=== PATIENT | male | born 1965 | race Caucasian/White ===

== ENCOUNTER 2018-09-11 10:20 | Day surgery (SDC) | payer OTHER ==
[2018-09-06 09:35] LABS: Urine Appearance CLEAR; Urine Bilirubin NEGATIVE (NEG); Urine Blood NEGATIVE (NEG); Urine Color YELLOW; Urine Glucose NEGATIVE (NEG); Urine Protein NEGATIVE (NEG); Urine Specific Gravity 1.015 (1.005-1.030); Urine Urobilinogen 0.2 mg/dL (0.2-1.0); Urine pH 5.5 (5.0-7.0)
[2018-09-06 09:36] LABS: Urine Microscopic Reflex NO UMIC
[2018-09-06 09:40] LABS: Absolute Lymphocytes (CBC) 3.7 K/uL (0.7-4.9); Absolute Monocytes 0.7 K/uL (0.1-1.3); Absolute Neutrophil 4.4 K/uL (1.8-8.0); Basophils % 0.5 % (0-1.3); Eosinophils % 2.9 % (0-4.4); Hematocrit 41.9 % (39.6-49.0); Lymphocytes % 40.5 % (15.3-44.8); MCH 30.5 pg (27.0-35.0); MCV 86.6 fL (80-100); MPV 8.2 fL (7.6-11.3); RBC Red Blood Cell Count 4.84 M/uL (4.33-5.43)
[2018-09-06 09:41] LABS: Protime INR 0.97
[2018-09-06 09:51] LABS: Phosphorus 3.9 mg/dL (2.5-4.9); Potassium 3.9 mmol/L (3.5-5.1); Uric Acid 5.2 mg/dL (3.5-7.2)
--- NOTE | 2018-09-06 10:35 | RAD REPORT ---
EXAM DESCRIPTION: RAD - Chest Pa And Lat (2 Views) - 09/06/2018 9:03 am CLINICAL HISTORY: Preop chest, pending kidney stone treatment COMPARISON: February 2013 TECHNIQUE: PA and lateral views of the chest were obtained. FINDINGS: The lungs are clear of failure, infiltrate or mass. Lung markings are similar to the vasiliy rison. Diaphragm is flattened. Posterior costophrenic angle blunting is believed to be chronic. This matches the 2013 exam. Heart size is normal and central vasculature is within normal limits. No pl eural effusion or pneumothorax seen. No acute bony finding noted. No aortic abnormality. IMPRESSION: No acute cardiopulmonary process. Above detailed findings not clearly different from 13.
--- NOTE | 2018-09-06 22:11 | EKG ---
Test Date: 2018-09-06 Test Time: 08:54:37 Extended Insurance Clerk: HO MEASUREMENT RESULTS: Intervals: Rate: 72 NE: 152 QRSD: 98 QT: 398 QTc: 435 [place]: P: 68 NE: 152 QRS: 49 T: 54 INTERPRETIVE STATEMENTS: Normal sinus rhythm Normal ECG Compared to ECG 09/11/2017 13:10:52 No significant changes Electronically Signed On 09-06-18 22:10:21 CDT by Cholo Wise
[2018-09-11] MEDS ORDERED: NA CHLORIDE 0.9% 1,000 ML ONE (10:50)
[2018-09-11] MEDS ORDERED: GENTAMICIN 100 MG/100 ML BAG 100 MG/100 ML BAG IV ONE (10:50)
[2018-09-11] MEDS ORDERED: MIDAZOLAM HCL 2 MG/2 ML INJ ONE (11:45)
[2018-09-11] MEDS ORDERED: FENTANYL CITR 100 MCG/2 ML ONE (11:45)
[2018-09-11] MEDS ORDERED: PROPOFOL 200 MG/20 ML VIAL IV ONE (11:45)
[2018-09-11] MEDS ORDERED: ONDANSETRON 4 MG/2 ML VIAL ONE (11:46)
[2018-09-11] MEDS ORDERED: LIDOCAINE 1% MPF 2 ML AMPULE ONE (11:47)
--- NOTE | 2018-09-11 11:59 | RAD REPORT ---
EXAM DESCRIPTION: RAD - Abdomen 1 View (KUB) - 09/11/2018 11:54 am CLINICAL HISTORY: pre op Pain COMPARISON: Abdomen 1 View (KUB) dated 08/24/2018; Abdomen 1 View (KUB) dated 10/16/2017; Abdomen 1 View (KUB) dated 10/03/2017; Abdomen 1 View (KUB) dated 09/27/2017 FINDINGS: The bowel gas pattern is non-obstructive. No evidence of free air or pneumatosis. Small ca lcification seen inferior right kidney. No significant bony findings. IMPRESSION: Small inferior right renal calculus.
== END 2018-09-11 13:50 | disposition home or self-care (01) ==
LOC: OR 10:20
PROVIDERS: ATTEND Urology
PROC: 0TF3XZZ Fragmentation in Right Kidney Pelvis, External Approach (ICD-10-PCS; principal; 2018-09-11 11:30)
DX: N20.0 Calculus of kidney (principal); I10 Essential (primary) hypertension; E11.9 Type 2 diabetes mellitus without complications; J44.9 Chronic obstructive pulmonary disease, unspecified; J45.909 Unspecified asthma, uncomplicated; E78.00 Pure hypercholesterolemia, unspecified; E78.5 Hyperlipidemia, unspecified; G47.33 Obstructive sleep apnea (adult) (pediatric); F17.200 Nicotine dependence, unspecified, uncomplicated; Z88.6 Allergy status to analgesic agent; Z82.49 Family history of ischemic heart disease and other diseases of the circulatory system
CPT/HCPCS: 36415; 50590; 71046; 74018; 80048; 81003; 82962; 84100; 84550; 85025; 85610; 85730; 93005; J1580; J2001; J2250; J2405; J2704; J3010; J7030

== ENCOUNTER 2018-09-18 09:52 | Day surgery (SDC) | payer OTHER ==
[2018-09-17 13:01] LABS: Absolute Lymphocytes (CBC) 2.9 K/uL (0.7-4.9); Absolute Monocytes 0.6 K/uL (0.1-1.3); Absolute Neutrophil 3.3 K/uL (1.8-8.0); Eosinophils % 2.6 % (0-4.4); Hematocrit 41.3 % (39.6-49.0); Lymphocytes % 41.1 % (15.3-44.8); MCH 30.7 pg (27.0-35.0); MCV 87.5 fL (80-100); MPV 8.2 fL (7.6-11.3); Monocytes % 8.5 % (3.3-12.3); RBC Red Blood Cell Count 4.72 M/uL (4.33-5.43)
[2018-09-17 13:02] LABS: Urine Appearance CLEAR; Urine Bilirubin NEGATIVE (NEG); Urine Blood NEGATIVE (NEG); Urine Color YELLOW; Urine Glucose NEGATIVE (NEG); Urine Protein NEGATIVE (NEG); Urine Specific Gravity 1.015 (1.005-1.030); Urine pH 7.5 (5.0-7.0)
[2018-09-17 13:03] LABS: Urine Microscopic Reflex NO UMIC
[2018-09-17 13:27] LABS: Potassium 4.2 mmol/L (3.5-5.1); Uric Acid 4.7 mg/dL (3.5-7.2)
--- NOTE | 2018-09-17 13:59 | RAD REPORT ---
EXAM DESCRIPTION: Shonda Cid (2 Views)09/17/2018 1:51 pm CLINICAL HISTORY: Abdominal pain/preop lithotripsy COMPARISON: 09/06/2018 FINDINGS: The lungs appear clear of acute infiltrate. The heart is normal size IMPRESSION: No acute abnormalities displayed
[2018-09-17 15:56] LABS: Protime INR 0.99
--- NOTE | 2018-09-18 10:36 | RAD REPORT ---
EXAM DESCRIPTION: RAD - Abdomen 1 View (KUB) - 09/18/2018 10:23 am CLINICAL HISTORY: ICD N 20.0 FINDINGS: The bowel gas pattern is unremarkable. No change has occurred in the appearance or location of the 2 small calculi within the lower pole rig ht kidney
[2018-09-18] MEDS ORDERED: NA CHLORIDE 0.9% 1,000 ML ONE (11:16)
[2018-09-18] MEDS ORDERED: GENTAMICIN 100 MG/100 ML BAG 100 MG/100 ML BAG IV ONE (11:16)
[2018-09-18] MEDS ORDERED: PROPOFOL 200 MG/20 ML VIAL IV ONE (12:03)
[2018-09-18] MEDS ORDERED: LIDOCAINE 2% MPF 5 ML VIAL ONE (12:04)
[2018-09-18] MEDS ORDERED: MIDAZOLAM HCL 2 MG/2 ML INJ ONE (12:04)
[2018-09-18] MEDS ORDERED: FENTANYL CITR 100 MCG/2 ML ONE (12:04)
--- NOTE | 2018-09-18 15:03 | EKG ---
Test Date: 2018-09-17 Test Time: 13:10:46 Heel Washer Stringing Machine Operator: SANTINO MEASUREMENT RESULTS: Intervals: Rate: 77 WV: 154 QRSD: 92 QT: 382 QTc: 432 Idamay: P: 69 WV: 154 QRS: 62 T: 62 INTERPRETIVE STATEMENTS: Normal sinus rhythm Normal ECG Compared to ECG 09/06/2018 08:54:37 No significant changes Electronically Signed On 09-18-18 15:00:59 COMMUNICATION COORDINATOR by Tr Rivera
== END 2018-09-18 14:35 | disposition home or self-care (01) ==
LOC: OR 09:52
PROVIDERS: ATTEND Urology
PROC: 0TF3XZZ Fragmentation in Right Kidney Pelvis, External Approach (ICD-10-PCS; principal; 2018-09-18 12:00)
DX: N20.0 Calculus of kidney (principal); E11.9 Type 2 diabetes mellitus without complications; I10 Essential (primary) hypertension; G47.30 Sleep apnea, unspecified; J44.9 Chronic obstructive pulmonary disease, unspecified; J45.909 Unspecified asthma, uncomplicated; E78.5 Hyperlipidemia, unspecified; E78.00 Pure hypercholesterolemia, unspecified; F17.200 Nicotine dependence, unspecified, uncomplicated; Z88.6 Allergy status to analgesic agent; Z82.49 Family history of ischemic heart disease and other diseases of the circulatory system
CPT/HCPCS: 36415; 50590; 71046; 74018; 80048; 81003; 82330; 82962; 84100; 84550; 85025; 85610; 85730; 87086; 87088; 93005; J1580; J2250; J2704; J3010; J7030

== ENCOUNTER 2019-09-06 04:43 | Emergency (ER) | payer BC ==
[2019-09-06] MEDS ORDERED: dexAMETHasone 10 MG/ML VIAL ONE (05:26)
[2019-09-06] MEDS ORDERED: ALBUTEROL 2.5 MG/3 ML NEB SOL ONE (05:27)
[2019-09-06] MEDS ORDERED: NA CHLORIDE 0.9% 1,000 ML ONE (05:27)
[2019-09-06] MEDS ORDERED: IPRATROPIUM BROM 0.5MG/2.5ML ONE (05:27)
[2019-09-06] MEDS ORDERED: predniSONE 20 MG TAB ONE (05:27)
[2019-09-06] MEDS ORDERED: CEFTRIAXONE 1000 MG/VIAL ONE (05:40)
[2019-09-06] MEDS ORDERED: AZITHROMYCIN 250 MG TAB ONE (05:40)
[2019-09-06 05:47] LABS: Absolute Lymphocytes (CBC) 2.1 K/uL (0.7-4.9); Basophils % 0.6 % (0-1.3); Hematocrit 43.2 % (39.6-49.0); Lymphocytes % 36.6 % (15.3-44.8); MPV 8.1 fL (7.6-11.3); RBC Red Blood Cell Count 4.98 M/uL (4.33-5.43)
[2019-09-06 06:04] LABS: ALT/SGPT 58 U/L (12-78); AST/SGOT 40 U/L (15-37); Albumin 3.9 g/dL (3.4-5.0); Alkaline Phosphatase 78 U/L (45-117); BUN Blood Urea Nitrogen 13 mg/dL (7-18); Bicarbonate 27 mmol/L (21-32); Bilirubin Total 0.9 mg/dL (0.2-1.0); Glucose Level 140 mg/dL (74-106); NT PRO-BNP 23 pg/mL (<125); Potassium 3.9 mmol/L (3.5-5.1); Protein, Total 7.6 g/dL (6.4-8.2); Sodium Level 141 mmol/L (136-145); Troponin (Emerg Dept Use Only) < 0.02 ng/mL (0.0-0.045)
--- NOTE | 2019-09-06 06:45 | EDPHYS ---
Physician Documentation [facility] Name: Clinton Garcia Age: 54 yrs Sex: Male : 1965 Arrival Date: 09/06/2019 Time: 04:46 Bed 5 Private MD: Hunter Huff C ED Physician Alfredo Sahu HPI: 09/06 05:24 This 54 yrs old Male presents to ER via Ambulatory with complaints of sharon Breathing Difficulty. 05:24 The patient has shortness of breath at rest, with light activity. Onset: The sharon symptoms/episode began/occurred 3 day(s) ago. Duration: The symptoms are continuous, and are unchanged since they started. The patient's shortness of breath is aggravated by coughing, exertion. Associated signs and symptoms: The patient has no apparent associated signs or symptoms. Severity of symptoms: At their worst the symptoms were mild moderate in the emergency department the symptoms are unchanged. The patient has not experienced similar symptoms in the past, The patient has experienced similar episodes in the past. Historical: - Allergies: 05:13 Codeine; fc - Home Meds: 05:13 Jardiance 10 mg oral tab 1 tab once daily [Active]; metformin 500 mg Oral tab 1 tab 2 fc times per day [Active]; rosuvastatin 10 mg oral tab 1 tab nightly [Active]; losartan 25 mg oral tab 1 tab once daily [Active]; Anoro Ellipta 62.5-25 mcg/actuation inhalation dsdv 1 puff once daily [Active]; amlodipine 5 mg tab 1 tab twice a day [Active]; Januvia 100 mg oral tab 1 tab once daily [Active]; - PMHx: 05:13 COPD; High Cholesterol; Hypertension; Diabetes - NIDDM; Bronchitis; Kidney stones; fc - PSHx: 05:13 Lithotripsy; Knee surgery; fc - Immunization history:: Last tetanus immunization: up to date Pneumococcal vaccine is not up to date, Flu vaccine is not up to date. - Social history:: Smoking status: Patient uses tobacco products, smokes one pack cigarettes per day. Patient uses alcohol, but reports only rare drinking. Patient/guardian denies using street drugs. - Ebola Screening: : Patient negative for fever greater than or equal to 101.5 degrees Fahrenheit, and additional compatible Ebola Virus Disease symptoms Patient denies exposure to infectious person Patient denies travel to an Ebola-affected area in the 21 days before illness onset. - Family history:: not pertinent. ROS: 05:24 Constitutional: Negative for fever, chills, and weight loss, Eyes: Negative for injury, sharon pain, redness, and discharge, ENT: Negative for injury, pain, and discharge, Neck: Negative for injury, pain, and swelling, Cardiovascular: Negative for chest pain, palpitations, and edema, Abdomen/GI: Negative for abdominal pain, nausea, vomiting, diarrhea, and constipation, Back: Negative for injury and pain, : Negative for injury, bleeding, discharge, and swelling, MS/Extremity: Negative for injury and deformity, Skin: Negative for injury, rash, and discoloration, Neuro: Negative for headache, weakness, numbness, tingling, and seizure, Psych: Negative for depression, anxiety, suicide ideation, homicidal ideation, and hallucinations, Allergy/Immunology: Negative for hives, rash, and allergies, Endocrine: Negative for neck swelling, polydipsia, polyuria, polyphagia, and marked weight changes, Hematologic/Lymphatic: Negative for swollen nodes, abnormal bleeding, and unusual bruising. 05:24 Respiratory: Positive for cough, shortness of breath, wheezing, inspiratory, expiratory. Exam: 05:24 Constitutional: This is a well developed, well nourished patient who is awake, alert, sahron and in no acute distress. Head/Face: Normocephalic, atraumatic. Eyes: Pupils equal round and reactive to light, extra-ocular motions intact. Lids and lashes normal. Conjunctiva and sclera are non-icteric and not injected. Cornea within normal limits. Periorbital areas with no swelling, redness, or edema. ENT: Nares patent. No nasal discharge, no septal abnormalities noted. Tympanic membranes are normal and external auditory canals are clear. Oropharynx with no redness, swelling, or masses, exudates, or evidence of obstruction, uvula midline. Mucous membranes moist. Neck: Trachea midline, no thyromegaly or masses palpated, and no cervical lymphadenopathy. Supple, full range of motion without nuchal rigidity, or vertebral point tenderness. No Meningismus. Chest/axilla: Normal chest wall appearance and motion. Nontender with no deformity. No lesions are appreciated. Cardiovascular: Regular rate and rhythm with a normal S1 and S2. No gallops, murmurs, or rubs. Normal PMI, no JVD. No pulse deficits. Abdomen/GI: Soft, non-tender, with normal bowel sounds. No distension or tympany. No guarding or rebound. No evidence of tenderness throughout. Back: No spinal tenderness. No costovertebral tenderness. Full range of motion. Male : Normal genitalia with no discharge or lesions. Skin: Warm, dry with normal turgor. Normal color with no rashes, no lesions, and no evidence of cellulitis. MS/ Extremity: Pulses equal, no cyanosis. Neurovascular intact. Full, normal range of motion. Neuro: Awake and alert, GCS 15, oriented to person, place, time, and situation. Cranial nerves II-XII grossly intact. Motor strength 5/5 in all extremities. Sensory grossly intact. Cerebellar exam normal. Normal gait. Psych: Awake, alert, with orientation to person, place and time. Behavior, mood, and affect are within normal limits. 05:24 Respiratory: the patient does not display signs of respiratory distress, Respirations: labored breathing, that is mild, Breath sounds: bronchial sounds, decreased breath sounds, rhonchi, wheezing: expiratory is heard in the left posterior lower lobe, right posterior middle lobe and right posterior lower lobe. Vital Signs: 04:50 BP 150 / 78; Pulse 82; Resp 18; Temp 97.6(O); Pulse Ox 96% on R/A; Weight 131.54 kg fc (R); Height 6 ft. 3 in. (190.50 cm) (R); Pain 0/10; 05:51 BP 141 / 80; Pulse 91; Resp 19; Pulse Ox 96% ; rr5 07:27 BP 130 / 68; Pulse 77; Resp 17 S; Pulse Ox 96% on R/A; jl7 04:50 Body Mass Index 36.25 (131.54 kg, 190.50 cm) MDM: 04:57 Patient medically screened. [facility] 05:24 Data reviewed: vital signs, nurses notes, lab test result(s), EKG, radiologic studies, [facility] plain films. 09/06 05:23 Order name: CBC with Diff; Complete Time: 06:43 [facility] 09/06 05:23 Order name: Comprehensive Metabolic Panel; Complete Time: 06:43 [facility] 09/06 05:23 Order name: Chest Pa And Lat (2 Views) XRAY [facility] 09/06 05:23 Order name: Troponin (emerg Dept Use Only); Complete Time: 06:43 [facility] 09/06 05:23 Order name: BNP; Complete Time: 06:43 [facility] Administered Medications: 05:30 Drug: Albuterol - atroVENT (3:1) (2.5 mg - 0.5 mg) 3 ml Route: Nebulizer; rr5 06:20 Follow up: Response: No adverse reaction rr5 05:32 Drug: predniSONE 60 mg Route: PO; rr5 06:25 Follow up: Response: No adverse reaction; Marked relief of symptoms rr5 05:34 Drug: NS 0.9% 1000 ml Route: IV; Rate: 1 bolus; Site: right antecubital; rr5 07:10 Follow up: Response: No adverse reaction; IV Status: Completed infusion; IV Intake: rr5 1000ml 05:35 Drug: Decadron - Dexamethasone 10 mg Route: IVP; Site: right antecubital; rr5 06:20 Follow up: Response: No adverse reaction; Marked relief of symptoms rr5 05:40 Drug: Rocephin 1 grams Route: IV; Rate: per protocol; Site: right antecubital; rr5 06:25 Follow up: Response: No adverse reaction; IV Status: Completed infusion; IV Intake: [id number] 05:47 Drug: Zithromax 500 mg Route: PO; rr5 06:25 Follow up: Response: No adverse reaction rr5 07:02 Drug: Xopenex 2.5 mg Route: Inhalation; rr5 07:28 Follow up: Response: No adverse reaction jl7 Disposition: 09/06/19 06:44 Discharged to Home. Impression: Dyspnea, Chronic obstructive pulmonary disease with (acute) exacerbation, Tobacco abuse counseling, Tobacco use, Bronchitis, not specified as acute or chronic. - Condition is Stable. - Discharge Instructions: Chronic Bronchitis, Chronic Obstructive Pulmonary Disease, Steps to Quit Smoking, Smoking Hazards, Shortness of Breath, Ggkf-br-Rrmm, Chronic Obstructive Pulmonary Disease Exacerbation, Chronic Obstructive Pulmonary Disease, Ymzf-xw-Pnxl, Steps to Quit Smoking, Skxw-mt-Xotv, Cough, Adult, Oiox-er-Wynr. - Prescriptions for Albuterol Sulfate 2.5 mg /3 mL (0.083 %) Inhalation Solution for Nebulization - inhale 1 unit by NEBULIZATION route every 8 hours As needed; 1 box. Prednisone 20 mg Oral Tablet - take 2 tablets by ORAL route once daily for 6 days; 12 tablet. Albuterol Sulfate 90 mcg/actuation - inhale 1-2 puff by INHALATION route every 4-6 hours; 1 Inhaler. Zithromax 500 mg Oral Tablet - take 1 tablet by ORAL route once daily for 4 days; 4 tablet. - Work release form, Medication Reconciliation Form, Thank You Letter, Antibiotic Education, Prescription Opioid Use form. - Follow up: Hunter Huff; When: 2 - 3 days; Reason: Recheck today's complaints, Continuance of care, Re-evaluation by your physician. Follow up: Armando Valdovinos MD; When: 5 - 6 days; Reason: Recheck today's complaints, Re-evaluation by your physician. - Problem is new. - Symptoms have improved. Signatures: Dispatcher [employer] EDAlfredo Rodriges MD MD cha Chretien, Felicia RN RN fc Julián Toure RN RN jl7 Spencer Verduzco RN RN rr5 Corrections: (The following items were deleted from the chart) 06:46 06:44 09/06/2019 06:44 Discharged to Home. Impression: Dyspnea; Chronic obstructive sharon pulmonary disease with (acute) exacerbation; Tobacco abuse counseling; Tobacco use; Bronchitis, not specified as acute or chronic. Condition is Stable. Discharge Instructions: Chronic Bronchitis, Chronic Obstructive Pulmonary Disease, Steps to Quit Smoking, Smoking Hazards, Shortness of Breath, Zkvz-ud-Njid, Chronic Obstructive Pulmonary Disease Exacerbation, Chronic Obstructive Pulmonary Disease, Hbpx-sc-Tuug, Steps to Quit Smoking, Uioq-lo-Fior, Cough, Adult, Ncni-lh-Ujbz. Prescriptions for Albuterol Sulfate 2.5 mg /3 mL (0.083 %) Inhalation Solution for Nebulization - inhale 1 unit by NEBULIZATION route every 8 hours As needed; 1 box, Prednisone 20 mg Oral Tablet - take 2 tablets by ORAL route once daily for 6 days; 12 tablet, Albuterol Sulfate 90 mcg/actuation - inhale 1-2 puff by INHALATION route every 4-6 hours; 1 Inhaler, Zithromax 500 mg Oral Tablet - take 1 tablet by ORAL route once daily for 4 days; 4 tablet. and Forms are Medication Reconciliation Form, Thank You Letter, Antibiotic Education, Prescription Opioid Use. Follow up: Hunter Huff; When: 2 - 3 days; Reason: Recheck today's complaints, Continuance of care, Re-evaluation by your physician. Problem is new. Symptoms have improved. [facility] 07:29 06:46 09/06/2019 06:44 Discharged to Home. Impression: Dyspnea; Chronic obstructive jl7 pulmonary disease with (acute) exacerbation; Tobacco abuse counseling; Tobacco use; Bronchitis, not specified as acute or chronic. Condition is Stable. Discharge Instructions: Chronic Bronchitis, Chronic Obstructive Pulmonary Disease, Steps to Quit Smoking, Smoking Hazards, Shortness of Breath, Edmu-lc-Rlls, Chronic Obstructive Pulmonary Disease Exacerbation, Chronic Obstructive Pulmonary Disease, Wruh-zk-Eeot, Steps to Quit Smoking, Cqbx-lh-Okzu, Cough, Adult, Ydwn-rd-Pets. Prescriptions for Albuterol Sulfate 2.5 mg /3 mL (0.083 %) Inhalation Solution for Nebulization - inhale 1 unit by NEBULIZATION route every 8 hours As needed; 1 box, Prednisone 20 mg Oral Tablet - take 2 tablets by ORAL route once daily for 6 days; 12 tablet, Albuterol Sulfate 90 mcg/actuation - inhale 1-2 puff by INHALATION route every 4-6 hours; 1 Inhaler, Zithromax 500 mg Oral Tablet - take 1 tablet by ORAL route once daily for 4 days; 4 tablet. and Forms are Medication Reconciliation Form, Thank You Letter, Antibiotic Education, Prescription Opioid Use. Follow up: Hunter Huff; When: 2 - 3 days; Reason: Recheck today's complaints, Continuance of care, Re-evaluation by your physician. Follow up: Armando Valdovinos; When: 5 - 6 days; Reason: Recheck today's complaints, Re-evaluation by your physician. Problem is new. Symptoms have improved. sharon
--- NOTE | 2019-09-06 06:45 | ER ---
Nurse's Notes [facility] Name: Clinton Garcia Age: 54 yrs Sex: Male : 1965 Arrival Date: 09/06/2019 Time: 04:46 Bed 5 Private MD: Hunter Huff C Diagnosis: Dyspnea;Chronic obstructive pulmonary disease with (acute) exacerbation;Tobacco abuse counseling;Tobacco use;Bronchitis, not specified as acute or chronic Presentation: 09/06 04:50 Presenting complaint: Patient states: that 6 days ago while on a cruise he started to have a sore throat and cough. Went to Dr Huff 4 days ago and was given Amoxicillin but has progressively gotten worse. Now having shortness of breath. Transition of care: patient was not received from another setting of care. Onset of symptoms was August 31, 2019. Risk Assessment: Do you want to hurt yourself or someone else? Patient reports no desire to harm self or others. Initial Sepsis Screen: Does the patient meet any 2 criteria? No. Patient's initial sepsis screen is negative. Does the patient have a suspected source of infection? No. Patient's initial sepsis screen is negative. Care prior to arrival: Medication(s) given: Amoxicillin. 04:50 Method Of Arrival: Ambulatory fc 04:50 Acuity: BUZZ 3 fc Historical: - Allergies: 05:13 Codeine; fc - Home Meds: 05:13 Jardiance 10 mg oral tab 1 tab once daily [Active]; metformin 500 mg Oral tab 1 tab 2 fc times per day [Active]; rosuvastatin 10 mg oral tab 1 tab nightly [Active]; losartan 25 mg oral tab 1 tab once daily [Active]; Anoro Ellipta 62.5-25 mcg/actuation inhalation dsdv 1 puff once daily [Active]; amlodipine 5 mg tab 1 tab twice a day [Active]; Januvia 100 mg oral tab 1 tab once daily [Active]; - PMHx: 05:13 COPD; High Cholesterol; Hypertension; Diabetes - NIDDM; Bronchitis; Kidney stones; fc - PSHx: 05:13 Lithotripsy; Knee surgery; fc - Immunization history:: Last tetanus immunization: up to date Pneumococcal vaccine is not up to date, Flu vaccine is not up to date. - Social history:: Smoking status: Patient uses tobacco products, smokes one pack cigarettes per day. Patient uses alcohol, but reports only rare drinking. Patient/guardian denies using street drugs. - Ebola Screening: : Patient negative for fever greater than or equal to 101.5 degrees Fahrenheit, and additional compatible Ebola Virus Disease symptoms Patient denies exposure to infectious person Patient denies travel to an Ebola-affected area in the 21 days before illness onset. - Family history:: not pertinent. Screenin:50 Abuse screen: Denies threats or abuse. Nutritional screening: No deficits noted. fc Tuberculosis screening: No symptoms or risk factors identified. Fall Risk None identified. Assessment: 04:50 General: Appears in no apparent distress. comfortable, Behavior is calm, cooperative, rr5 appropriate for age. Pain: Denies pain. Neuro: Level of Consciousness is awake, alert, obeys commands, Oriented to person, place, time, situation, Appropriate for age. Cardiovascular: Capillary refill < 3 seconds Patient's skin is warm and dry. Rhythm is regular. Respiratory: Reports shortness of breath cough that is Airway is patent Respiratory effort is even, unlabored, Respiratory pattern is regular, symmetrical, Sputum is thick, clear Breath sounds with wheezes. GI: No signs and/or symptoms were reported involving the gastrointestinal system. : No signs and/or symptoms were reported regarding the genitourinary system. EENT: Reports pain in throat. Derm: Skin is intact, Skin temperature is warm. Musculoskeletal: Circulation, motion, and sensation intact. Capillary refill < 3 seconds. 05:51 Reassessment: Patient appears in no apparent distress at this time. Patient is alert, rr5 oriented x 3, equal unlabored respirations, skin warm/dry/pink. much better after the breathing treatment as verbalized by the patient. Patient states feeling better. Patient states symptoms have improved. 06:28 Reassessment: Patient appears in no apparent distress at this time. Patient is alert, rr5 oriented x 3, equal unlabored respirations, skin warm/dry/pink. awaiting for results. no complaints made. Patient states symptoms have improved. 07:27 Reassessment: Patient appears in no apparent distress at this time. Patient is alert, jl7 oriented x 3, equal unlabored respirations, skin warm/dry/pink. Patient states feeling better. Patient states symptoms have improved. Vital Signs: 04:50 BP 150 / 78; Pulse 82; Resp 18; Temp 97.6(O); Pulse Ox 96% on R/A; Weight 131.54 kg fc (R); Height 6 ft. 3 in. (190.50 cm) (R); Pain 0/10; 05:51 BP 141 / 80; Pulse 91; Resp 19; Pulse Ox 96% ; rr5 07:27 BP 130 / 68; Pulse 77; Resp 17 S; Pulse Ox 96% on R/A; jl7 04:50 Body Mass Index 36.25 (131.54 kg, 190.50 cm) ED Course: 04:46 Patient arrived in ED. es 04:46 Hunter Huff MD is Private Physician. es 04:50 Arm band placed on Patient placed in an exam room, on a stretcher. fc 04:50 Patient has correct armband on for positive identification. Placed in gown. Bed in low fc position. Call light in reach. Pulse ox on. NIBP on. 04:50 No provider procedures requiring assistance completed. fc 04:57 Alfredo Sahu MD is Attending Physician. sharon 05:02 Spencer Verduzco RN is Primary Nurse. rr5 05:06 Triage completed. fc 05:30 Initial Neb Treatment Given as ordered Patient was instructed and evaluated on rr5 procedure. 05:35 Inserted saline lock: 20 gauge in right antecubital area, using aseptic technique. oe Blood collected. 05:48 Initial Neb Treatment Given as ordered Patient tolerated procedure well without adverse rr5 effect. 06:16 Chest Pa And Lat (2 Views) XRAY In Process Unspecified. EDMS 06:44 Hunter Huff MD is Referral Physician. sharon 06:46 Armando Valdovinos MD is Referral Physician. sharon 07:27 IV discontinued, intact, bleeding controlled, No redness/swelling at site. Pressure jl7 dressing applied. Administered Medications: 05:30 Drug: Albuterol - atroVENT (3:1) (2.5 mg - 0.5 mg) 3 ml Route: Nebulizer; rr5 06:20 Follow up: Response: No adverse reaction rr5 05:32 Drug: predniSONE 60 mg Route: PO; rr5 06:25 Follow up: Response: No adverse reaction; Marked relief of symptoms rr5 05:34 Drug: NS 0.9% 1000 ml Route: IV; Rate: 1 bolus; Site: right antecubital; rr5 07:10 Follow up: Response: No adverse reaction; IV Status: Completed infusion; IV Intake: rr5 1000ml 05:35 Drug: Decadron - Dexamethasone 10 mg Route: IVP; Site: right antecubital; rr5 06:20 Follow up: Response: No adverse reaction; Marked relief of symptoms rr5 05:40 Drug: Rocephin 1 grams Route: IV; Rate: per protocol; Site: right antecubital; rr5 06:25 Follow up: Response: No adverse reaction; IV Status: Completed infusion; IV Intake: [id number] 05:47 Drug: Zithromax 500 mg Route: PO; rr5 06:25 Follow up: Response: No adverse reaction rr5 07:02 Drug: Xopenex 2.5 mg Route: Inhalation; rr5 07:28 Follow up: Response: No adverse reaction jl7 Intake: 06:25 IV: 10ml; Total: 10ml. rr5 07:10 IV: 1000ml; Total: 1010ml. rr5 Outcome: 06:44 Discharge ordered by . sharon 07:27 Discharged to home ambulatory. jl7 07:27 Condition: stable 07:27 Discharge instructions given to patient, Instructed on discharge instructions, follow up and referral plans. medication usage, Demonstrated understanding of instructions, follow-up care, medications, Prescriptions given X 4. 07:29 Patient left the ED. jl7 Signatures: Dispatcher [employer] Alfredo Her MD MD cha Salyer, Edna es Chretien, Felicia, RN RN Joel Bolden Jahala, RN RN jl7 Spencer Verduzco RN RN rr5
[2019-09-06] MEDS ORDERED: LEVALBUTEROL 1.25 MG/3 ML NEB ONE (06:56)
[2019-09-06 07:40] VITALS: TEMP 97.6; O2SAT 96
[2019-09-06 07:43] VITALS: BP 130/68
--- NOTE | 2019-09-06 08:23 | RAD REPORT ---
EXAM DESCRIPTION: Shonda Conde And Pedro (2 Views)09/06/2019 6:16 am CLINICAL HISTORY: Cough COMPARISON: None FINDINGS: The lungs are hyperaerated. Left pleural thickening Perihilar peribronchial thickening Remainder lungs are clear. The heart is normal size IMPRESSION: COPD Parahilar peribronchial thickening may be related to bronchitis
== END 2019-09-06 07:29 | disposition home or self-care (01) ==
LOC: ER 04:43
DX: J44.1 Chronic obstructive pulmonary disease with (acute) exacerbation (principal); J40 Bronchitis, not specified as acute or chronic; R06.00 Dyspnea, unspecified; Z72.0 Tobacco use; Z71.6 Tobacco abuse counseling; Z88.6 Allergy status to analgesic agent; E11.9 Type 2 diabetes mellitus without complications; I10 Essential (primary) hypertension; E78.00 Pure hypercholesterolemia, unspecified
CPT/HCPCS: 96365; 96361; 85025; 36415; 84484; 80053; 83880; 71046; 94640; 96375; 99284; J1100; J7030; J7512